=== PATIENT | male | born 1985 | race Caucasian/White ===

== ENCOUNTER 2018-07-16 08:52 | Emergency (ER) | payer BC, OTHER ==
--- OUTSIDE RECORDS SUMMARY | 2018-07-16 08:59 | XMS REPORT | Continuity of Care Document ---
:1985 External Reference #:[id number] Author Name Amanda Karin Care Team Providers Name Role Phone Patient's Choice Primary Care Physician Unavailable Payers Type Date Identification Numbers Payment Provider Subscriber Onset: 2018 Policy Number: [id number] [facility] PayID: [id number] 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 ETOH Use Occasionally consumes alcohol Tobacco Use Start: Unknown End: Patient is a former quit 3 years ago Unknown smoker Smoking Status Reviewed: 06/23/18 Patient is a former quit 3 years ago smoker Exercise Type/Frequency Exercises regularly Allergies, Adverse Reactions, Alerts Description No Known Drug Allergies Medications Medication Date Status Form Strength Qnty SIG Indications Ordering Provider Novolog Active Solution 100Unit/ML 2 units Unknown Flexpen 000 Pen-Inject subq for glucose of 160-199, 4 units for glucose 200-249, 6 units for glucose 250-300 tid a day before meals Immunizations Description No Information Available Vital Signs Date Vital Result Comment 06/23/2018 10:43am Height 70.5 inches 5'10.50" Heart Rate 80 /min Respiratory Rate 18 /min Pain Level 1 05/21/2018 1:35pm Height 70.5 inches 5'10.50" Weight 200.00 lb Heart Rate 66 /min Respiratory Rate 16 /min Body Temperature 98.2 F BMI (Body Mass Index) 28.3 kg/m2 05/08/2018 10:09am Height 70.5 inches 5'10.50" Weight 200.75 lb Heart Rate 80 /min BP Systolic Sitting 110 mmHg BP Diastolic Sitting 74 mmHg Respiratory Rate 16 /min Body Temperature 98.2 F Pain Level 0 intermittent 6 BMI (Body Mass Index) 28.4 kg/m2 Results Description No Information Available Procedures Description No Information Available Encounters Type Date Location Provider Dx Diagnosis Office Visit 05/21/2018 [facility] [id number] Nondisp fx of 1:[facility]p [facility] middle phalanx of right index finger, 7thD Office Visit 05/08/2018 [facility] [id number] Nondisp fx of 9:30a [facility] middle phalanx of right index finger, init S62.650A Nondisp fx of middle phalanx of right index finger, init Plan of Treatment 06/23/2018 - Yaritza Rowan M.D.[id number] Nondisplaced fracture of middle phalanx of right index fingeNew Xrays:Finger Right 2ND (Index), Ordered: ollow up:Follow up: As needed
[2018-07-16 09:06] VITALS: BP 138/67
--- NOTE | 2018-07-16 09:25 | UC ---
Respiratory Complaint HPI - HPI Summary HPI Summary: 4-5 DAYS OF COUGH, HEAD/CHEST CONGESTION, SCRATCHY THROAT AND FATIGUE. PATIENT HAS CHILLS AND SWEATS AT NIGHT BUT NO DOCUMENTED FEVER. HAS A HISTORY OF TYPE 1 DIABETES WITH ONLY MODERATE CONTROL. LAST A1C WAS 7.2 ACCORDING TO THE PATIENT. - History of Current Complaint Chief Complaint: UCRespiratory Stated Complaint: CHEST CONGESTION Time Seen by Provider: 07/16/18 09:14 Hx Obtained From: Patient Onset/Duration: Gradual Onset, Lasting Days, Still Present Timing: Constant Severity Initially: Moderate Severity Currently: Moderate Pain Intensity: 3 Pain Scale Used: 0-10 Numeric Character: Cough: Nonproductive Aggravating Factors: Nothing Alleviating Factors: Nothing Associated Signs And Symptoms: Positive: Chills, URI, Nasal Congestion. Negative: Dyspnea, Fever - Allergies/Home Medications Allergies/Adverse Reactions: Allergies Allergy/AdvReac Type Severity Reaction Status Date / Time No Known Allergies Allergy Verified 07/16/18 09:06 Home Medications: Home Medications Dm/PE/Acetaminophen/Doxylamine [Vicks Dayquil-Nyquil Cold-Flu] 1 tab PO ONCE PRN 07/16/18 [History Confirmed 07/16/18] PMH/Surg Hx/FS Hx/Imm Hx Endocrine History: Diabetes - TYPE I - Surgical History Surgical History: Yes Surgery Procedure, Year, and Place: wisdom teeth - Family History Known Family History: Positive: Non-Contributory - Social History Alcohol Use: Rare Substance Use Type: None Smoking Status (MU): Former Smoker Type: Cigarettes Amount Used/How Often: 10-20 cigs per week - Immunization History Most Recent Tetanus Shot: not sure Review of Systems All Other Systems Reviewed And Are Negative: Yes Constitutional: Positive: Chills, Fatigue ENT: Positive: Sore Throat, Nasal Discharge Respiratory: Positive: Cough Cardiovascular: Positive: Negative Gastrointestinal: Positive: Negative Physical Exam Triage Information Reviewed: Yes Appearance: Well-Appearing, No Pain Distress, Well-Nourished Vital Signs: Initial Vital Signs Temp 97.8 F 07/16/18 09:02 Pulse 90 07/16/18 09:02 Resp 18 07/16/18 09:02 BP 138/67 07/16/18 09:02 Pulse Ox 99 07/16/18 09:02 Vital Signs Reviewed: Yes Eyes: Positive: Conjunctiva Clear ENT: Positive: Hearing grossly normal, Pharyngeal erythema, TMs normal. Negative: Tonsillar swelling, Tonsillar exudate Neck: Positive: Supple, Nontender, No Lymphadenopathy Respiratory Exam: Normal Cardiovascular Exam: Normal Abdomen Description: Positive: Soft Musculoskeletal: Positive: No Edema Neurological: Positive: Alert Psychological: Positive: Age Appropriate Behavior Skin: Negative: Rashes UC Diagnostic Evaluation - Laboratory O2 Sat by Pulse Oximetry: 99 Respiratory Course/Dx - Course Course Of Treatment: PATIENT LIKELY WITH A VIRAL ILLNESS BUT GIVEN HIS HISTORY OF ONLY MODERATELY CONTROLLED TYPE 1 DIABETES HE IS RELATIVELY IMMUNOSUPPRESSED. WILL COVER WITH AMOXICILLIN. FOLLOW-UP WITH PCP IF NOT IMPROVING EXPECTED. - Differential Dx/Diagnosis Provider Diagnosis: Acute URI Discharge - Sign-Out/Discharge Documenting (check all that apply): Patient Departure All imaging exams completed and their final reports reviewed: No Studies - Discharge Plan Condition: Stable Disposition: HOME Prescriptions: Amoxicillin PO (*) [Amoxicillin 500 MG CAP*] 500 mg PO Q12H #14 cap Patient Education Materials: Upper Respiratory Infection (ED) Referrals: Omar Horn MD [Primary Care Provider] - If Needed Additional Instructions: YOUR SYMPTOMS MAY BE VIRALLY MEDIATED BUT GIVEN YOUR HISTORY OF DIABETES YOU ARE MORE SUSCEPTIBLE TO BACTERIAL INFECTION SO WE WILL COVER YOU WITH ANTIBIOTICS. IF YOU START THE MEDICINE BE SURE TO TAKE IT FOR THE FULL COURSE. REST, HYDRATE, OTC MEDS NEEDED. SEEK FOLLOW-UP WITH YOUR PCP IF YOU ARE NOT IMPROVING OVER THE NEXT 1-2 WEEKS. - Billing Disposition and Condition Condition: STABLE Disposition: Home
== END 2018-07-16 09:34 | disposition home or self-care (01) ==
LOC: UCEAST 08:52
DX: J06.9 Acute upper respiratory infection, unspecified (principal); E10.9 Type 1 diabetes mellitus without complications; Z87.891 Personal history of nicotine dependence
CPT/HCPCS: 99212; G0463

== ENCOUNTER 2018-11-03 20:34 | Emergency (ER) | payer BC ==
[2018-11-03 20:49] VITALS: BP 119/58
[2018-11-03] MEDS ORDERED: predniSONE TAB* 20 MG PO ONE (20:55)
--- NOTE | 2018-11-03 20:56 | UC ---
Skin Complaint HPI - HPI Summary HPI Summary: 33-year-old male comes in with chief complaint of poison daniela to both forearms. Started off for 5 days ago on the right forearm. Tympanic calamine lotion on it however it is continuing spread. It's spread to his left forearm also. It does itch. No fevers or chills. The rash is not anywhere else. Had in the past and steroids of helped. - History of Current Complaint Chief Complaint: UCSkin Time Seen by Provider: 11/03/18 20:51 Stated Complaint: RASH Pain Intensity: 0 - Allergy/Home Medications Allergies/Adverse Reactions: Allergies Allergy/AdvReac Type Severity Reaction Status Date / Time No Known Allergies Allergy Verified 11/03/18 20:49 PMH/Surg Hx/FS Hx/Imm Hx Previously Healthy: Yes Endocrine History: Diabetes - Surgical History Surgical History: Yes Surgery Procedure, Year, and Place: wisdom teeth - Family History Known Family History: Positive: Non-Contributory - Social History Alcohol Use: Rare Substance Use Type: None Smoking Status (MU): Former Smoker Type: Cigarettes Amount Used/How Often: 10-20 cigs per week When Did the Patient Quit Smoking/Using Tobacco: 2016 - Immunization History Most Recent Tetanus Shot: not sure Review of Systems All Other Systems Reviewed And Are Negative: Yes Constitutional: Positive: Negative Skin: Positive: Other - SEE HPI Eyes: Positive: Negative ENT: Positive: Negative Respiratory: Positive: Negative Cardiovascular: Positive: Negative Gastrointestinal: Positive: Negative Motor: Positive: Negative Neurovascular: Positive: Negative Musculoskeletal: Positive: Negative Neurological: Positive: Negative Psychological: Positive: Negative Is Patient Immunocompromised?: No Physical Exam Triage Information Reviewed: Yes Appearance: Well-Appearing, No Pain Distress, Well-Nourished Vital Signs: Initial Vital Signs Temp 98.3 F 11/03/18 20:47 Pulse 76 11/03/18 20:47 Resp 16 11/03/18 20:47 BP 119/58 11/03/18 20:47 Pulse Ox 99 11/03/18 20:47 Vital Signs Reviewed: Yes Eye Exam: Normal Eyes: Positive: Conjunctiva Clear Neck: Positive: Supple Respiratory: Positive: No respiratory distress Musculoskeletal Exam: Normal Musculoskeletal: Positive: Strength Intact, ROM Intact Neurological Exam: Normal Neurological: Positive: Alert, Muscle Tone Normal Psychological Exam: Normal Psychological: Positive: Age Appropriate Behavior Skin: Positive: Rashes - Erythematous based rash with vesicles on both forearms. Course/Dx - Diagnoses Provider Diagnosis: Poison daniela Discharge - Sign-Out/Discharge Documenting (check all that apply): Patient Departure All imaging exams completed and their final reports reviewed: No Studies - Discharge Plan Condition: Stable Disposition: HOME Prescriptions: predniSONE TAB* [Deltasone 20 MG TAB*] 40 mg PO DAILY #10 tab Patient Education Materials: Poison Daniela (ED) Referrals: Omar Horn MD [Primary Care Provider] - Additional Instructions: FOLLOW UP WITH YOUR DOCTOR IF NOT COMPLETELY IMPROVED. GET REEVALUATED SOONER IF YOUR CONDITION WORSENS OR ANY QUESTIONS OR CONCERNS. - Billing Disposition and Condition Condition: STABLE Disposition: Home
== END 2018-11-03 21:10 | disposition home or self-care (01) ==
LOC: UCEAST 20:34
DX: L23.7 Allergic contact dermatitis due to plants, except food (principal); E11.9 Type 2 diabetes mellitus without complications; Z87.891 Personal history of nicotine dependence
CPT/HCPCS: 99212; G0463; J7512

== ENCOUNTER 2019-01-10 21:44 | Emergency (ER) | payer BC ==
[2019-01-10 21:57] VITALS: BP 136/58
[2019-01-10] MEDS ORDERED: predniSONE TAB* 20 MG PO ONE (22:52)
--- NOTE | 2019-01-10 22:57 | UC ---
Skin Complaint HPI - History of Current Complaint Chief Complaint: UCSkin Time Seen by Provider: 01/10/19 22:47 Stated Complaint: RASH Pain Intensity: 0 - Allergy/Home Medications Allergies/Adverse Reactions: Allergies Allergy/AdvReac Type Severity Reaction Status Date / Time No Known Allergies Allergy Verified 01/10/19 21:57 Home Medications: Home Medications Calamine LOTION* 1 applic .SEE ORDER PRN 01/10/19 [History] Hydrocortisone 1% CREAM* [Hytone (Topical) 1%*] 1 applic TOPICAL PRN 01/10/19 [ History] PMH/Surg Hx/FS Hx/Imm Hx - Surgical History Surgical History: Yes Surgery Procedure, Year, and Place: wisdom teeth - Family History Known Family History: Positive: Non-Contributory - Social History Alcohol Use: Occasionally Substance Use Type: None Smoking Status (MU): Former Smoker Type: Cigarettes Amount Used/How Often: 10-20 cigs per week When Did the Patient Quit Smoking/Using Tobacco: 2015 - Immunization History Most Recent Tetanus Shot: not sure Physical Exam Vital Signs: Initial Vital Signs Temp 97.5 F 01/10/19 21:53 Pulse 73 01/10/19 21:53 Resp 16 01/10/19 21:53 BP 136/58 01/10/19 21:53 Pulse Ox 100 01/10/19 21:53 Course/Dx - Differential Diagnoses - Skin Complaint Differential Diagnoses: Contact Dermatitis, Poison Daniela - Diagnoses Provider Diagnosis: Poison daniela dermatitis Discharge - Sign-Out/Discharge Documenting (check all that apply): Patient Departure All imaging exams completed and their final reports reviewed: No Studies - Discharge Plan Condition: Stable Disposition: HOME Prescriptions: predniSONE TAB* [Deltasone 20 MG TAB*] 40 mg PO DAILY #8 tab Patient Education Materials: Poison Daniela (ED) Referrals: Omar Horn MD [Primary Care Provider] - 3 Days Additional Instructions: Take prednisone 40 mg daily for the next 4 days. We gave you a dose in the clinic so start this tomorrow. Use [id number] diphenhydramine (Benadryl) according to directions as needed for itching. Try to avoid scratching as this could spread the rash to other places. Follow-up with your primary care provider in 3-5 days if symptoms are not improving Seek immediate medical attention in the emergency room if you develop fever greater than 100.5 F, redness that spreads, red streaks up your arms, swelling of the lips, tongue, throat, difficulty breathing, or any worsening of symptoms. - Billing Disposition and Condition Condition: STABLE Disposition: Home
== END 2019-01-10 23:04 | disposition home or self-care (01) ==
LOC: UCEAST 21:44
DX: L23.7 Allergic contact dermatitis due to plants, except food (principal); Z87.891 Personal history of nicotine dependence
CPT/HCPCS: 99212; G0463; J7512